=== PATIENT | male | born 1960 | race Caucasian/White ===

== ENCOUNTER 2016-12-27 13:34 | Inpatient (IN) | payer MEDICARE ==
[2016-12-27 13:42] LABS: Glucose,Whole Blood >600 mg/dL (75-99)
[2016-12-27] MEDS ORDERED: ONDANSETRON 4 MG/2 ML VIAL IVP STA (13:42)
[2016-12-27] MEDS ORDERED: SODIUM CHLORIDE 0.9% 2,000 ML IV STA (13:42)
[2016-12-27] MEDS ORDERED: INSULIN REGULAR 100 UNIT in SODIUM CHLORIDE 0.9% 100 ML IV ONE (13:45)
[2016-12-27] MEDS ORDERED: INSULIN REGULAR 100 UNIT/ML VIAL IV ONE (13:45)
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
[2016-12-27 14:22] LABS: Anisocytosis Slight; Basophils % (A) 0 %; CH 27.4; CHCM 31.4; Eosinophils % (A) 0 %; HCT 31.6 % (39.0-53.0); HDW 2.65; HGB 10.1 gm/dL (13.0-17.5); Hypochromasia Slight; Luc # (Auto) 0.29; Luc % (Auto) 1; Lymphocytes # (A) 0.9 k/uL (1.0-4.8); Lymphocytes % (A) 3 %; MCV 87.6 fL (80.0-100.0); Mean Platelet Volume 8.7; Monocytes # (A) 1.3 k/uL (0-1.0); Monocytes % (A) 5 %; Neutrophils # (A) 23.3 k/uL (1.3-7.7); Neutrophils % (A) 90 %; RBC 3.61 m/uL (4.30-5.90); RDW 16.3 % (11.5-15.5)
[2016-12-27 14:31] LABS: ALT 24 U/L (21-72); AST 14 U/L (17-59); Alkaline Phosphatase 87 U/L (38-126); Amylase <30 U/L (30-110); Anion Gap 32 mmol/L; Calcium 9.8 mg/dL (8.4-10.2); Carbon Dioxide 11 mmol/L (22-30); Chloride 85 mmol/L (98-107); Non-African American GFR(MDRD) 35 (>60 ml/min/1.73 sqM); Potassium 6.1 mmol/L (3.5-5.1); Sodium 128 mmol/L (137-145); Total Bilirubin 0.8 mg/dL (0.2-1.3); Total Protein 6.2 g/dL (6.3-8.2)
[2016-12-27 14:38] LABS: WBC 25.7 k/uL (3.8-10.6)
[2016-12-27 14:49] LABS: Blood Urea Nitrogen 106 mg/dL (9-20); Glucose 792 mg/dL (74-99)
[2016-12-27 14:52] LABS: ABG PCO2 23 mmHg (35-45); ABG PH 7.27 (7.35-7.45); ABG PO2 122 mmHg (83-108)
[2016-12-27 14:53] LABS: ABG HCO3 11 mmol/L (21-25); ABG TCO2 11 mmol/L (19-24)
[2016-12-27 14:55] LABS: Troponin I 0.031 ng/mL (0.000-0.034)
[2016-12-27 14:57] LABS: Appearance,Urine Clear (Clear); Bilirubin,Urine Negative (Negative); Glucose,Urine (UA) 4+ (Negative); Leukocyte Esterase,Urine Negative (Negative); Nitrite,Urine Negative (Negative); PH, Urine 5.5 (5.0-8.0); Protein,Urine Negative (Negative); Specific Gravity,Urine 1.011 (1.001-1.035); UA Billing (MACRO vs. MICRO) CHEM; Urobilinogen,Urine <2.0 mg/dL (<2.0)
[2016-12-27 14:58] LABS: Creatine Kinase MB 2.9 ng/mL (0.0-2.4)
[2016-12-27 15:04] LABS: Ketones,Urine 2+ (Negative)
--- NOTE | 2016-12-27 15:10 | XR ---
EXAMINATION TYPE: XR chest 2V DATE OF EXAM: 12/27/2016 COMPARISON: 11/04/2015 HISTORY: Abdominal pain TECHNIQUE: Frontal and lateral views of the chest are obtained. FINDINGS: Heart and mediastinum are normal. Lungs are clear. Costophrenic angles are clear. There ar e chest leads. There are no hilar masses. Bony thorax is intact. IMPRESSION: Normal chest. No change.
[2016-12-27 16:14] LABS: Glucose,Whole Blood 554 mg/dL (75-99)
[2016-12-27] MEDS: INSULIN REGULAR 100 UNIT in SODIUM CHLORIDE 0.9% 100 ML IV SCH ×2 (16:42→22:24)
[2016-12-27] MEDS: SODIUM CHLORIDE 0.9% 1,000 ML IV SCH ×2 (17:15→21:14)
[2016-12-27 17:20] LABS: Glucose,Whole Blood 531 mg/dL (75-99)
[2016-12-27 17:47] LABS: Glucose,Whole Blood 488 mg/dL (75-99)
[2016-12-27 18:36] LABS: Anion Gap 18 mmol/L; Blood Urea Nitrogen 102 mg/dL (9-20); Carbon Dioxide 17 mmol/L (22-30); Chloride 99 mmol/L (98-107); Glucose 487 mg/dL (74-99); Non-African American GFR(MDRD) 57 (>60 ml/min/1.73 sqM); Phosphorous 2.2 mg/dL (2.5-4.5); Potassium 4.1 mmol/L (3.5-5.1); Sodium 134 mmol/L (137-145)
[2016-12-27] MEDS: PANTOPRAZOLE 40 MG/10 ML VIAL IV SCH (18:46)
[2016-12-27] MEDS: NICOTINE 14MG/24HR PATCH TRANSDERM SCH (18:47)
[2016-12-27 20:07] LABS: Glucose,Whole Blood 384 mg/dL (75-99)
[2016-12-27 21:14] LABS: Glucose,Whole Blood 310 mg/dL (75-99)
[2016-12-27] MEDS: PREGABALIN 75 MG CAP PO SCH (21:14)
[2016-12-27] MEDS: HYDROcodone/APAP 7.5-325MG 1 EACH TAB PO PRN (21:14)
[2016-12-27 21:56] LABS: Glucose,Whole Blood 269 mg/dL (75-99)
[2016-12-27] MEDS: D5-0.45% NACL WITH KCL 20MEQ/L 1,000 ML IV SCH (22:25)
[2016-12-27 23:00] LABS: Anion Gap 10 mmol/L; Carbon Dioxide 21 mmol/L (22-30); Chloride 106 mmol/L (98-107); Glucose 173 mg/dL (74-99); Non-African American GFR(MDRD) >60 (>60 ml/min/1.73 sqM); Phosphorous 1.7 mg/dL (2.5-4.5); Potassium 3.8 mmol/L (3.5-5.1); Sodium 137 mmol/L (137-145)
[2016-12-27 23:01] LABS: Blood Urea Nitrogen 93 mg/dL (9-20)
[2016-12-28 02:59] LABS: Glucose,Whole Blood 171 mg/dL (75-99)
[2016-12-28 02:59] LABS: Glucose,Whole Blood 94 mg/dL (75-99)
[2016-12-28 02:59] LABS: Glucose,Whole Blood 90 mg/dL (75-99)
[2016-12-28 02:59] LABS: Glucose,Whole Blood 124 mg/dL (75-99)
[2016-12-28 03:05] LABS: Glucose,Whole Blood 109 mg/dL (75-99)
[2016-12-28 04:02] LABS: Glucose,Whole Blood 114 mg/dL (75-99)
[2016-12-28] MEDS: D5-0.45% NACL WITH KCL 20MEQ/L 1,000 ML IV SCH (05:05)
[2016-12-28 05:09] LABS: Glucose,Whole Blood 104 mg/dL (75-99)
[2016-12-28 06:06] LABS: Anisocytosis Slight; Basophils % (A) 0 %; CH 27.7; CHCM 33.4; Eosinophils # (A) 0.1 k/uL (0-0.7); Eosinophils % (A) 1 %; HCT 20.6 % (39.0-53.0); HDW 2.59; Luc # (Auto) 0.26; Luc % (Auto) 2; Lymphocytes # (A) 2.1 k/uL (1.0-4.8); Lymphocytes % (A) 13 %; MCHC 33.6 g/dL (31.0-37.0); MCV 83.4 fL (80.0-100.0); Mean Platelet Volume 7.5; Monocytes # (A) 1.2 k/uL (0-1.0); Monocytes % (A) 8 %; Neutrophils # (A) 12.1 k/uL (1.3-7.7); Neutrophils % (A) 77 %; RBC 2.47 m/uL (4.30-5.90); RDW 16.4 % (11.5-15.5); WBC 15.8 k/uL (3.8-10.6); WBC (Perox) 14.72
[2016-12-28 06:11] LABS: Glucose,Whole Blood 108 mg/dL (75-99)
[2016-12-28 06:11] LABS: ALT 21 U/L (21-72); AST 10 U/L (17-59); Alkaline Phosphatase 54 U/L (38-126); Anion Gap 7 mmol/L; Blood Urea Nitrogen 79 mg/dL (9-20); Calcium 8.6 mg/dL (8.4-10.2); Carbon Dioxide 20 mmol/L (22-30); Chloride 111 mmol/L (98-107); Glucose 95 mg/dL (74-99); Non-African American GFR(MDRD) >60 (>60 ml/min/1.73 sqM); Potassium 4.2 mmol/L (3.5-5.1); Sodium 138 mmol/L (137-145); Total Bilirubin 0.2 mg/dL (0.2-1.3); Total Protein 4.6 g/dL (6.3-8.2)
[2016-12-28 06:14] LABS: HGB 6.9 gm/dL (13.0-17.5)
[2016-12-28 06:42] LABS: Anisocytosis Slight; CH 27.7; CHCM 33.6; HCT 21.2 % (39.0-53.0); HDW 2.62; HGB 7.1 gm/dL (13.0-17.5); MCH 27.8 pg (25.0-35.0); MCHC 33.6 g/dL (31.0-37.0); MCV 82.6 fL (80.0-100.0); Mean Platelet Volume 8.5; RBC 2.57 m/uL (4.30-5.90); RDW 16.5 % (11.5-15.5); WBC 16.1 k/uL (3.8-10.6)
[2016-12-28 07:00] LABS: Glucose,Whole Blood 121 mg/dL (75-99)
[2016-12-28 08:00] LABS: Glucose,Whole Blood 102 mg/dL (75-99)
[2016-12-28] MEDS: INSULIN GLARGINE 100 UNIT/ML 10 ML VIAL SQ SCH (09:21)
[2016-12-28] MEDS: PANTOPRAZOLE 40 MG/10 ML VIAL IV SCH (09:25)
[2016-12-28] MEDS: NICOTINE 14MG/24HR PATCH TRANSDERM SCH (09:25)
--- NOTE | 2016-12-28 09:29 | XR ---
EXAMINATION TYPE: XR chest 1V DATE OF EXAM: 12/28/2016 COMPARISON: Prior chest x-ray 12/27/2016 HISTORY: Rule out fluid overload, diabetes ketoacidosis TECHNIQUE: Single frontal view of the chest is obtained. FINDINGS: There is no focal air space opacity, pleural effusion, or pneumothorax seen. The cardiac silhouette size is within normal limits. The osseous structures are intact. IMPRESSION: No acute process.
[2016-12-28] MEDS: PREGABALIN 75 MG CAP PO SCH ×3 (09:34→20:24)
[2016-12-28 10:35] VITALS: BMI 16.9
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
[2016-12-28 11:22] LABS: % Iron Saturation 9.5 % (20-50)
[2016-12-28 12:20] LABS: Glucose,Whole Blood 156 mg/dL (75-99)
[2016-12-28] MEDS: INSULIN LISPRO (humaLOG) 300 UNIT/3 ML VIAL SQ SCH ×3 (12:49→20:24)
[2016-12-28] MEDS: HYDROcodone/APAP 7.5-325MG 1 EACH TAB PO PRN (13:15)
[2016-12-28 15:04] LABS: Anisocytosis Slight; Basophils % (A) 0 %; CH 27.2; CHCM 34.3; Eosinophils # (A) 0.2 k/uL (0-0.7); Eosinophils % (A) 1 %; HCT 21.8 % (39.0-53.0); HDW 2.69; HGB 7.5 gm/dL (13.0-17.5); Luc # (Auto) 0.22; Luc % (Auto) 1; Lymphocytes # (A) 1.6 k/uL (1.0-4.8); Lymphocytes % (A) 9 %; MCH 27.3 pg (25.0-35.0); MCHC 34.2 g/dL (31.0-37.0); MCV 79.8 fL (80.0-100.0); Mean Platelet Volume 8.3; Microcytosis Slight; Monocytes # (A) 1.2 k/uL (0-1.0); Monocytes % (A) 7 %; Neutrophils % (A) 81 %; RBC 2.73 m/uL (4.30-5.90); RDW 16.5 % (11.5-15.5); WBC 17.3 k/uL (3.8-10.6); WBC (Perox) 18.21
[2016-12-28] MEDS: ONDANSETRON 4 MG/2 ML VIAL IVP PRN (16:16)
[2016-12-28 17:20] LABS: Glucose,Whole Blood 94 mg/dL (75-99)
[2016-12-28 20:25] LABS: Glucose,Whole Blood 155 mg/dL (75-99)
[2016-12-28 22:51] LABS: Hemoglobin A1C 9.7 % (4.2-6.1)
[2016-12-29 05:11] LABS: Anisocytosis Slight; Basophils % (A) 0 %; CH 27.7; CHCM 34.8; Eosinophils # (A) 0.2 k/uL (0-0.7); Eosinophils % (A) 2 %; HDW 2.73; Luc # (Auto) 0.16; Luc % (Auto) 2; Lymphocytes % (A) 21 %; MCH 28.3 pg (25.0-35.0); MCHC 35.3 g/dL (31.0-37.0); MCV 80.1 fL (80.0-100.0); Mean Platelet Volume 8.1; Microcytosis Slight; Monocytes # (A) 0.8 k/uL (0-1.0); Monocytes % (A) 8 %; Neutrophils # (A) 6.4 k/uL (1.3-7.7); Neutrophils % (A) 67 %; RBC 2.35 m/uL (4.30-5.90); RDW 16.8 % (11.5-15.5); WBC 9.6 k/uL (3.8-10.6); WBC (Perox) 9.46
[2016-12-29 05:18] LABS: HCT 18.8 % (39.0-53.0); HGB 6.6 gm/dL (13.0-17.5)
[2016-12-29 05:56] LABS: ALT 21 U/L (21-72); AST 12 U/L (17-59); Alkaline Phosphatase 50 U/L (38-126); Anion Gap 7 mmol/L; Blood Urea Nitrogen 42 mg/dL (9-20); Calcium 8.7 mg/dL (8.4-10.2); Carbon Dioxide 21 mmol/L (22-30); Chloride 112 mmol/L (98-107); Magnesium 1.8 mg/dL (1.6-2.3); Non-African American GFR(MDRD) >60 (>60 ml/min/1.73 sqM); Phosphorous 2.6 mg/dL (2.5-4.5); Sodium 140 mmol/L (137-145); Total Bilirubin 0.1 mg/dL (0.2-1.3); Total Protein 4.5 g/dL (6.3-8.2)
[2016-12-29 06:05] LABS: Glucose 47 mg/dL (74-99)
[2016-12-29 06:10] LABS: Glucose,Whole Blood 57 mg/dL (75-99)
[2016-12-29 06:47] LABS: Glucose,Whole Blood 91 mg/dL (75-99)
[2016-12-29] MEDS: INSULIN LISPRO (humaLOG) 300 UNIT/3 ML VIAL SQ SCH ×4 (08:15→22:56)
[2016-12-29] MEDS: NICOTINE 14MG/24HR PATCH TRANSDERM SCH (08:15)
[2016-12-29] MEDS: PANTOPRAZOLE 40 MG/10 ML VIAL IV SCH (08:16)
[2016-12-29 09:37] LABS: Glucose,Whole Blood 381 mg/dL (75-99)
--- NOTE | 2016-12-29 10:26 | P.PN ---
Subjective 12/28/09-This is a 56-year-old male patient being seen, examined and evaluated today in the intensive care unit. Patient came into the emergency room after a 3-4 history of having vomiting and diarrhea. The patient is a known diabetic and stops taking his insulin due to not eating the past 3-4 days. Subsequently the patient presented to the emergency room and was found to be in DKA. The patient's blood sugar was greater than 600 and also had positive acetones. The patient states he has had DKA in the past and he felt the symptoms coming on and therefore he came into the emergency room. On the patient's hemoglobin was 10.1 subsequently dropped to 6.9 a repeat was 7.1. There's been no signs and symptoms of bleeding. He has not had any further diarrhea or vomiting since admission. He did receive a 2 L bolus well in the emergency room. Patient states that his stools have been dark brown and watery as well as his emesis was coffee ground at home. GI has been consult it. Upon examination the patient is resting up in bed on room air denies any cough congestion or shortness of breath. Denies any dizziness or abdominal pain. She does have a urostomy on the right lower abdomen. Patient has had good urine output. Vital signs currently stable. The patient's insulin drip has been discontinued this morning. 12/29/16- upon examination the patient is resting up in bed on room air. Patient had labs drawn this morning which revealed a drop in his hemoglobin to 6.6. Patient is currently receiving 1 unit of packed red blood cells at the time of examination. Repeat labs will be drawn 2 hours post blood transfusion. Patient has not had a bowel movement since admission. No further nausea or vomiting. Urostomy to the right lower abdomen and intact no bleeding noted in the urostomy bag. Vital signs continued to be stable. Patient on longer on insulin drip. Patient states he is tolerating his diet well. GI was put on consult currently awaiting recommendations. Objective - Vital Signs Vital signs: Vital Signs Temp 98.2 F 12/29/16 07:25 Pulse 80 12/29/16 09:00 Resp 23 12/29/16 09:00 BP 166/88 12/29/16 09:00 Pulse Ox 98 12/29/16 08:00 Intake & Output 12/28/16 12/29/16 12/29/16 18:59 06:59 18:59 Intake Total 2175 600 250 Output Total 1101 1000 250 Balance 1074 -400 0 Weight 47.6 kg 48.8 kg Intake: IV 300 D5-0.45% NaCl with KCl 300 20Meq/l 1,000 ml @ 150 mls/hr IV .Q6H40M [facility] Rx# :[id number] Oral 1875 600 Blood Product 0 250 Rc As-3 Unit 0 [id number] Output: Urine 1101 1000 250 Other: Voiding Method Incontinent Incontinent Incontinent - Exam GENERAL EXAM: Alert, active, comfortable in no apparent distress. HEAD: Normocephalic. EYES: Normal reaction of pupils, equal size. NOSE: Clear with pink turbinates. THROAT: No erythema or exudates. NECK: No masses, no JVD. CHEST: No chest wall deformity. LUNGS: Equal air entry with no crackles, wheeze, rhonchi or dullness. CVS: S1 and S2 normal with no audible mumurs, regular rhythm. ABDOMEN: No hepatosplenomegaly, normal bowel sounds, no guarding or rigidity. Urostomy present EXTREMITIES: No edema noted, pedal pulses palpable. SKIN: No rashes CENTRAL NERVOUS SYSTEM: No focal deficits, tone is normal in all 4 extremities. - Labs CBC & Chem 7: 12/29/16 04:37 12/29/16 04:37 Labs: Abnormal Lab Results - Last 24 Hours (Table) 12/28/16 12/28/16 12/28/16 Range/Units 05:03 05:03 06:28 WBC (3.8-10.6) k/uL RBC (4.30-5.90) m/uL Hgb (13.0-17.5) gm/dL Hct (39.0-53.0) % MCV (80.0-100.0) fL RDW (11.5-15.5) % Neutrophils # (1.3-7.7) k/uL Monocytes # (0-1.0) k/uL Chloride (98-107) mmol/L Carbon Dioxide (22-30) mmol/L BUN (9-20) mg/dL Glucose (74-99) mg/dL POC Glucose (mg/dL) (75-99) mg/dL Hemoglobin A1c 9.7 H (4.2-6.1) % Iron 22 L (49-181) ug/dL TIBC 232 L (261-462) ug/dL % Saturation 9.5 L (20-50) % Total Bilirubin (0.2-1.3) mg/dL AST (17-59) U/L Total Protein (6.3-8.2) g/dL Albumin (3.5-5.0) g/dL Crossmatch See Detail 12/28/16 12/28/16 12/28/16 Range/Units 12:18 14:08 20:24 WBC 17.3 H (3.8-10.6) k/uL RBC 2.73 L (4.30-5.90) m/uL Hgb 7.5 L (13.0-17.5) gm/dL Hct 21.8 L (39.0-53.0) % MCV 79.8 L (80.0-100.0) fL RDW 16.5 H (11.5-15.5) % Neutrophils # 14.0 H (1.3-7.7) k/uL Monocytes # 1.2 H (0-1.0) k/uL Chloride (98-107) mmol/L Carbon Dioxide (22-30) mmol/L BUN (9-20) mg/dL Glucose (74-99) mg/dL POC Glucose (mg/dL) 156 H 155 H (75-99) mg/dL Hemoglobin A1c (4.2-6.1) % Iron (49-181) ug/dL TIBC (261-462) ug/dL % Saturation (20-50) % Total Bilirubin (0.2-1.3) mg/dL AST (17-59) U/L Total Protein (6.3-8.2) g/dL Albumin (3.5-5.0) g/dL Crossmatch 12/29/16 12/29/16 12/29/16 Range/Units 04:37 04:37 06:07 WBC (3.8-10.6) k/uL RBC 2.35 L (4.30-5.90) m/uL Hgb 6.6 L* (13.0-17.5) gm/dL Hct 18.8 L* (39.0-53.0) % MCV (80.0-100.0) fL RDW 16.8 H (11.5-15.5) % Neutrophils # (1.3-7.7) k/uL Monocytes # (0-1.0) k/uL Chloride 112 H (98-107) mmol/L Carbon Dioxide 21 L (22-30) mmol/L BUN 42 H (9-20) mg/dL Glucose 47 L* (74-99) mg/dL POC Glucose (mg/dL) 57 L (75-99) mg/dL Hemoglobin A1c (4.2-6.1) % Iron (49-181) ug/dL TIBC (261-462) ug/dL % Saturation (20-50) % Total Bilirubin 0.1 L (0.2-1.3) mg/dL AST 12 L (17-59) U/L Total Protein 4.5 L (6.3-8.2) g/dL Albumin 2.3 L (3.5-5.0) g/dL Crossmatch 12/29/16 Range/Units 09:36 WBC (3.8-10.6) k/uL RBC (4.30-5.90) m/uL Hgb (13.0-17.5) gm/dL Hct (39.0-53.0) % MCV (80.0-100.0) fL RDW (11.5-15.5) % Neutrophils # (1.3-7.7) k/uL Monocytes # (0-1.0) k/uL Chloride (98-107) mmol/L Carbon Dioxide (22-30) mmol/L BUN (9-20) mg/dL Glucose (74-99) mg/dL POC Glucose (mg/dL) 381 H (75-99) mg/dL Hemoglobin A1c (4.2-6.1) % Iron (49-181) ug/dL TIBC (261-462) ug/dL % Saturation (20-50) % Total Bilirubin (0.2-1.3) mg/dL AST (17-59) U/L Total Protein (6.3-8.2) g/dL Albumin (3.5-5.0) g/dL Crossmatch Assessment and Plan Plan: Assessment Diabetic ketoacidosis Dehydration with Diarrhea and vomiting, possible coffee-ground emesis Acute blood loss anemia Hypertension History of bladder cancer with urostomy placement in 2008 Diabetes mellitus type 2 Hyperlipidemia Plan Medications have been reviewed and will be continued as ordered. Patient is put back on Lantus and sliding scale coverage. Repeat CBC 2 hours post blood transfusion. And he need to monitor for any blood loss we'll obtain stool occult blood. Continue with pulmonary hygiene, coughing and deep breathing exercises, and supportive care. Supplemental oxygen to maintain oxygen saturations of 92% or better if needed. Continue nebulizer treatments. GI and DVT prophylaxis. GI has been consulted, appreciate any recommendations. We will continue to monitor labs/results and adjust treatment as necessary. Further recommendations pending. I performed an examination of the patient and discussed their management with the nurse practitioner. I have reviewed the nurse practitioner's note and agree with the documented findings and plan of care.
[2016-12-29 12:01] LABS: Glucose,Whole Blood 358 mg/dL (75-99)
[2016-12-29 12:07] LABS: Anisocytosis Slight; CH 28.1; CHCM 34.4; HDW 3.51; MCH 29.4 pg (25.0-35.0); MCHC 35.8 g/dL (31.0-37.0); MCV 82.1 fL (80.0-100.0); Mean Platelet Volume 8.1; Poikilocytosis Slight; RBC 2.92 m/uL (4.30-5.90); WBC 7.9 k/uL (3.8-10.6)
[2016-12-29 12:10] LABS: HGB 8.6 gm/dL (13.0-17.5)
[2016-12-29] MEDS: INSULIN GLARGINE 100 UNIT/ML 10 ML VIAL SQ SCH (12:29)
[2016-12-29] MEDS: PREGABALIN 75 MG CAP PO SCH ×3 (12:29→22:55)
--- NOTE | 2016-12-29 12:31 | P.PN ---
Subjective Principal diagnosis: his is a 56-year-old male, patient of Dr. Evans. He has a known past medical history of diabetes mellitus, hyperlipidemia, hypertension, bladder cancer diagnosed in 2008 with urostomy placement. Patient reports having vomiting and diarrhea for the last 3-4 days. He also reports some dark substance like coffee grounds in the vomit. He reports having about 5 episodes of vomiting and diarrhea a day. Unable to keep any food down. He reports not taking his insulin while he is been sick. Patient continued to feel weaker. And he reports that a neighbor found him sitting in his kitchen and called EMS. Patient was brought into the emergency room for further evaluation and treatment. He was found to have a blood sugar greater than 600 acetone positive and CO2 of 11. Diagnosed with diabetic ketoacidosis. He was admitted to the ICU and placed on the insulin protocol for diabetic ketoacidosis. Vomiting and diarrhea have resolved. However hemoglobin on admission was 10.1 dropped down to 6.9 and is currently at 7.1. Monitoring CBC closely. He's had no further vomiting and diarrhea since Wednesday. He denies any recent traveling. Denies any sick contacts. Last colonoscopy 2 years ago patient reports having polyps removed. on 12/29/2016 patient is alert and oriented in no distress tolerating diet well, off insulin drip on Lantus 20 units daily and novolog sliding scale, HGB 7.1 awaiting GI input. Objective - Vital Signs Vital signs: Vital Signs Temp 98.5 F 12/29/16 10:00 Pulse 71 12/29/16 11:00 Resp 26 H 12/29/16 11:00 BP 143/68 12/29/16 11:00 Pulse Ox 98 12/29/16 11:00 Intake & Output 12/28/16 12/29/16 12/29/16 18:59 06:59 18:59 Intake Total 2175 600 250 Output Total 1101 1000 525 Balance 1074 -400 -275 Weight 47.6 kg 48.8 kg Intake: IV 300 D5-0.45% NaCl with KCl 300 20Meq/l 1,000 ml @ 150 mls/hr IV .Q6H40M [facility] Rx# :[id number] Oral 1875 600 Blood Product 0 250 Rc As-3 Unit 0 0 [id number] Output: Urine 1101 1000 525 Other: Voiding Method Incontinent Incontinent Incontinent # Voids 0 - Exam HEENT head normocephalic and atraumatic Neck is supple no JVD no goiter no lymphadenopathy Chest is clear to auscultation no crackles no wheezing Cardiac exam reveals regular heart sounds S1 and S2 no gallops no murmurs Abdomen is soft nontender no organomegaly with normal bowel sounds Extremity exam reveals no edema no cyanosis or clubbing - Labs CBC & Chem 7: 12/29/16 11:36 12/29/16 04:37 Labs: Abnormal Lab Results - Last 24 Hours (Table) 12/28/16 12/28/16 12/28/16 Range/Units 05:03 06:28 14:08 WBC 17.3 H (3.8-10.6) k/uL RBC 2.73 L (4.30-5.90) m/uL Hgb 7.5 L (13.0-17.5) gm/dL Hct 21.8 L (39.0-53.0) % MCV 79.8 L (80.0-100.0) fL RDW 16.5 H (11.5-15.5) % Neutrophils # 14.0 H (1.3-7.7) k/uL Monocytes # 1.2 H (0-1.0) k/uL Chloride (98-107) mmol/L Carbon Dioxide (22-30) mmol/L BUN (9-20) mg/dL Glucose (74-99) mg/dL POC Glucose (mg/dL) (75-99) mg/dL Hemoglobin A1c 9.7 H (4.2-6.1) % Total Bilirubin (0.2-1.3) mg/dL AST (17-59) U/L Total Protein (6.3-8.2) g/dL Albumin (3.5-5.0) g/dL Crossmatch See Detail 12/28/16 12/29/16 12/29/16 Range/Units 20:24 04:37 04:37 WBC (3.8-10.6) k/uL RBC 2.35 L (4.30-5.90) m/uL Hgb 6.6 L* (13.0-17.5) gm/dL Hct 18.8 L* (39.0-53.0) % MCV (80.0-100.0) fL RDW 16.8 H (11.5-15.5) % Neutrophils # (1.3-7.7) k/uL Monocytes # (0-1.0) k/uL Chloride 112 H (98-107) mmol/L Carbon Dioxide 21 L (22-30) mmol/L BUN 42 H (9-20) mg/dL Glucose 47 L* (74-99) mg/dL POC Glucose (mg/dL) 155 H (75-99) mg/dL Hemoglobin A1c (4.2-6.1) % Total Bilirubin 0.1 L (0.2-1.3) mg/dL AST 12 L (17-59) U/L Total Protein 4.5 L (6.3-8.2) g/dL Albumin 2.3 L (3.5-5.0) g/dL Crossmatch 12/29/16 12/29/16 12/29/16 Range/Units 06:07 09:36 11:36 WBC (3.8-10.6) k/uL RBC 2.92 L (4.30-5.90) m/uL Hgb 8.6 L D (13.0-17.5) gm/dL Hct 24.0 L (39.0-53.0) % MCV (80.0-100.0) fL RDW 16.0 H (11.5-15.5) % Neutrophils # (1.3-7.7) k/uL Monocytes # (0-1.0) k/uL Chloride (98-107) mmol/L Carbon Dioxide (22-30) mmol/L BUN (9-20) mg/dL Glucose (74-99) mg/dL POC Glucose (mg/dL) 57 L 381 H (75-99) mg/dL Hemoglobin A1c (4.2-6.1) % Total Bilirubin (0.2-1.3) mg/dL AST (17-59) U/L Total Protein (6.3-8.2) g/dL Albumin (3.5-5.0) g/dL Crossmatch 12/29/16 Range/Units 11:59 WBC (3.8-10.6) k/uL RBC (4.30-5.90) m/uL Hgb (13.0-17.5) gm/dL Hct (39.0-53.0) % MCV (80.0-100.0) fL RDW (11.5-15.5) % Neutrophils # (1.3-7.7) k/uL Monocytes # (0-1.0) k/uL Chloride (98-107) mmol/L Carbon Dioxide (22-30) mmol/L BUN (9-20) mg/dL Glucose (74-99) mg/dL POC Glucose (mg/dL) 358 H (75-99) mg/dL Hemoglobin A1c (4.2-6.1) % Total Bilirubin (0.2-1.3) mg/dL AST (17-59) U/L Total Protein (6.3-8.2) g/dL Albumin (3.5-5.0) g/dL Crossmatch Assessment and Plan Plan: 1. Diabetic ketoacidosis with a blood sugar greater than 600 positive acetone and CO2 of 11. on presentation. Patient was placed on the diabetic ketoacidosis protocol. Blood sugars have shown improvement. Currently off of insulin drip. And started on Lantus 20 units at bedtime with sliding scale coverage. Continue to monitor. The DKA likely occurred due to patient not taking his insulin as well as being sick with vomiting and diarrhea. 2. Vomiting and diarrhea with possible coffee-ground emesis: Continue to monitor CBC closely. Last hemoglobin was 7. 1 repeat ordered this afternoon. Continue with the IV Protonix. Consult GI service for possible endoscopy. Check stool for occult blood 3. Acute blood loss anemia with coffee-ground emesis and possible GI bleed: Continue to monitor CBC. Continue Protonix. GI service consulted. Check iron studies 4. History of bladder cancer with urostomy placement in 2008 5. History of insulin-dependent diabetes mellitus 6. Essential hypertension, well controlled at this time. 7. Hyperlipidemia 8. History of iron deficiency anemia 9. Nicotine dependence: Continue nicotine patch. 10. Dehydration with elevated BUN of 93 down to 42 Improved with IV fluids. Continue to monitor creatinine normal at 0.9
[2016-12-29 17:04] VITALS: RESP 16; TEMP 98
[2016-12-29 18:00] LABS: Glucose,Whole Blood 74 mg/dL (75-99)
[2016-12-29] MEDS: HYDROcodone/APAP 7.5-325MG 1 EACH TAB PO PRN (20:32)
[2016-12-29] MEDS: ONDANSETRON 4 MG/2 ML VIAL IVP PRN (20:33)
[2016-12-29 20:34] LABS: Glucose,Whole Blood 161 mg/dL (75-99)
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
[2016-12-30 07:27] LABS: Glucose,Whole Blood 55 mg/dL (75-99)
[2016-12-30] MEDS ORDERED: PANTOPRAZOLE 40 MG TABLET PO SCH (07:30)
[2016-12-30 07:39] LABS: Anisocytosis Slight; Basophils % (A) 0 %; CH 28.3; CHCM 34.9; Eosinophils # (A) 0.3 k/uL (0-0.7); Eosinophils % (A) 4 %; HCT 24.6 % (39.0-53.0); HDW 3.56; HGB 8.6 gm/dL (13.0-17.5); Luc # (Auto) 0.23; Luc % (Auto) 3; Lymphocytes # (A) 2.4 k/uL (1.0-4.8); Lymphocytes % (A) 29 %; MCH 28.6 pg (25.0-35.0); MCHC 35.1 g/dL (31.0-37.0); MCV 81.5 fL (80.0-100.0); Mean Platelet Volume 7.5; Monocytes # (A) 0.6 k/uL (0-1.0); Monocytes % (A) 7 %; Neutrophils # (A) 4.7 k/uL (1.3-7.7); Neutrophils % (A) 57 %; Poikilocytosis Slight; RBC 3.02 m/uL (4.30-5.90); RDW 16.5 % (11.5-15.5); WBC 8.2 k/uL (3.8-10.6); WBC (Perox) 8.55
[2016-12-30 07:40] LABS: Glucose,Whole Blood 104 mg/dL (75-99)
[2016-12-30 08:23] LABS: ALT 18 U/L (21-72); AST 11 U/L (17-59); Alkaline Phosphatase 57 U/L (38-126); Anion Gap 9 mmol/L; Blood Urea Nitrogen 29 mg/dL (9-20); Carbon Dioxide 23 mmol/L (22-30); Chloride 108 mmol/L (98-107); Glucose 51 mg/dL (74-99); Magnesium 1.6 mg/dL (1.6-2.3); Non-African American GFR(MDRD) >60 (>60 ml/min/1.73 sqM); Phosphorous 2.8 mg/dL (2.5-4.5); Potassium 3.8 mmol/L (3.5-5.1); Sodium 140 mmol/L (137-145); Total Bilirubin 0.6 mg/dL (0.2-1.3); Total Protein 5.2 g/dL (6.3-8.2)
[2016-12-30] MEDS: PREGABALIN 75 MG CAP PO SCH (08:23)
[2016-12-30] MEDS: NICOTINE 14MG/24HR PATCH TRANSDERM SCH (08:23)
[2016-12-30] MEDS: INSULIN GLARGINE 100 UNIT/ML 10 ML VIAL SQ SCH (08:23)
[2016-12-30] MEDS: INSULIN LISPRO (humaLOG) 300 UNIT/3 ML VIAL SQ SCH ×2 (08:24→13:18)
[2016-12-30 08:36] VITALS: BP 176/81; PULSE 73
--- NOTE | 2016-12-30 09:09 | P.PN ---
Subjective Principal diagnosis: Nausea vomiting possible coffee-ground emesis 56-year-old male admitted with DKA nausea vomiting coffee-ground emesis possible viral gastroneuritis. Blood glucose levels improved. Symptoms improved. Tolerating diet. Anticipating discharge today. Hemoglobin 8.6 unchanged from yesterday. Denies nausea vomiting coffee-ground emesis. No melena. Objective - Vital Signs Vital signs: Vital Signs Temp 98 F 12/30/16 07:00 Pulse 73 12/30/16 07:00 Resp 16 12/30/16 07:00 BP 176/81 12/30/16 07:00 Pulse Ox 98 12/30/16 07:00 Intake & Output 12/29/16 12/30/16 12/30/16 18:59 06:59 18:59 Intake Total 250 990 Output Total 1000 800 Balance -750 190 Weight 47.627 kg Intake: Oral 990 Blood Product 250 Rc As-3 Unit 0 [id number] Output: Urine 1000 800 Other: Voiding Method Incontinent Incontinent # Voids 0 4 - Exam General appearance: The patient is alert, oriented, in no acute distress. HET: Head is normocephalic and atraumatic. Pupils are equal and reactive. Oropharynx is clear without lesions. Neck: Supple without lymphadenopathy. Trachea midline. Heart: S1 S2. Regular rate and rhythm. Lungs: No crackles or wheezes are heard. Abdomen: Soft, nontender, nondistended with bowel sounds. No peritoneal signs. No palpable organomegaly or masses. Extremities: Normal skin color and turgor. No cyanosis, rash, ulceration, clubbing, or edema. Radial and pedal pulses are 2/4 bilaterally. Neurological: No focal deficits. Strength and sensation are grossly intact. - Labs CBC & Chem 7: 12/30/16 07:18 12/30/16 07:17 Labs: Abnormal Lab Results - Last 24 Hours (Table) 12/28/16 12/29/16 12/29/16 Range/Units 06:28 09:36 11:36 RBC 2.92 L (4.30-5.90) m/uL Hgb 8.6 L D (13.0-17.5) gm/dL Hct 24.0 L (39.0-53.0) % RDW 16.0 H (11.5-15.5) % Chloride (98-107) mmol/L BUN (9-20) mg/dL Glucose (74-99) mg/dL POC Glucose (mg/dL) 381 H (75-99) mg/dL AST (17-59) U/L ALT (21-72) U/L Total Protein (6.3-8.2) g/dL Albumin (3.5-5.0) g/dL Crossmatch See Detail 12/29/16 12/29/16 12/29/16 Range/Units 11:59 17:59 20:32 RBC (4.30-5.90) m/uL Hgb (13.0-17.5) gm/dL Hct (39.0-53.0) % RDW (11.5-15.5) % Chloride (98-107) mmol/L BUN (9-20) mg/dL Glucose (74-99) mg/dL POC Glucose (mg/dL) 358 H 74 L 161 H (75-99) mg/dL AST (17-59) U/L ALT (21-72) U/L Total Protein (6.3-8.2) g/dL Albumin (3.5-5.0) g/dL Crossmatch 12/30/16 12/30/16 12/30/16 Range/Units 07:07 07:17 07:18 RBC 3.02 L (4.30-5.90) m/uL Hgb 8.6 L (13.0-17.5) gm/dL Hct 24.6 L (39.0-53.0) % RDW 16.5 H (11.5-15.5) % Chloride 108 H (98-107) mmol/L BUN 29 H (9-20) mg/dL Glucose 51 L (74-99) mg/dL POC Glucose (mg/dL) 55 L (75-99) mg/dL AST 11 L (17-59) U/L ALT 18 L (21-72) U/L Total Protein 5.2 L (6.3-8.2) g/dL Albumin 2.7 L (3.5-5.0) g/dL Crossmatch 12/30/16 Range/Units 07:38 RBC (4.30-5.90) m/uL Hgb (13.0-17.5) gm/dL Hct (39.0-53.0) % RDW (11.5-15.5) % Chloride (98-107) mmol/L BUN (9-20) mg/dL Glucose (74-99) mg/dL POC Glucose (mg/dL) 104 H (75-99) mg/dL AST (17-59) U/L ALT (21-72) U/L Total Protein (6.3-8.2) g/dL Albumin (3.5-5.0) g/dL Crossmatch Assessment and Plan (1) Coffee ground emesis Status: Acute (2) Nausea & vomiting Status: Acute (3) Diabetic ketoacidosis Status: Acute Plan: 1. Symptoms have improved. Patient is deferring EGD at this time and anticipating discharge later today. Continue with supportive measures. Consideration for outpatient EGD was discussed if GI symptoms return. Patient is agreeable with this plan of care. Discharge per medicine. Assessment and plan a care discussed with Dr. Parikh
--- NOTE | 2016-12-30 10:29 | P.PN ---
Subjective 12/28/09-This is a 56-year-old male patient being seen, examined and evaluated today in the intensive care unit. Patient came into the emergency room after a 3-4 history of having vomiting and diarrhea. The patient is a known diabetic and stops taking his insulin due to not eating the past 3-4 days. Subsequently the patient presented to the emergency room and was found to be in DKA. The patient's blood sugar was greater than 600 and also had positive acetones. The patient states he has had DKA in the past and he felt the symptoms coming on and therefore he came into the emergency room. On the patient's hemoglobin was 10.1 subsequently dropped to 6.9 a repeat was 7.1. There's been no signs and symptoms of bleeding. He has not had any further diarrhea or vomiting since admission. He did receive a 2 L bolus well in the emergency room. Patient states that his stools have been dark brown and watery as well as his emesis was coffee ground at home. GI has been consult it. Upon examination the patient is resting up in bed on room air denies any cough congestion or shortness of breath. Denies any dizziness or abdominal pain. She does have a urostomy on the right lower abdomen. Patient has had good urine output. Vital signs currently stable. The patient's insulin drip has been discontinued this morning. 12/29/16- upon examination the patient is resting up in bed on room air. Patient had labs drawn this morning which revealed a drop in his hemoglobin to 6.6. Patient is currently receiving 1 unit of packed red blood cells at the time of examination. Repeat labs will be drawn 2 hours post blood transfusion. Patient has not had a bowel movement since admission. No further nausea or vomiting. Urostomy to the right lower abdomen and intact no bleeding noted in the urostomy bag. Vital signs continued to be stable. Patient on longer on insulin drip. Patient states he is tolerating his diet well. GI was put on consult currently awaiting recommendations. 12/30/16- upon examination today the patient's resting up in bed on room air. His hemoglobin has stabilized and today it is 8.6. Patient states he is feeling significantly better. Patient's blood sugars better controlled. She denies any nausea vomiting or diarrhea. Patient requesting to go home. GI has evaluated the patient as well and agrees the patient can have an EGD in the outpatient setting. During this admission the patient had no grossly visible signs and symptoms of bleeding other than the drop in hemoglobin which has improved and resolved. Patient continues to tolerate his diet well. Objective - Vital Signs Vital signs: Vital Signs Temp 98 F 12/30/16 07:00 Pulse 73 12/30/16 07:00 Resp 16 12/30/16 07:00 BP 176/81 12/30/16 07:00 Pulse Ox 98 12/30/16 07:00 Intake & Output 12/29/16 12/30/16 12/30/16 18:59 06:59 18:59 Intake Total 250 990 Output Total 1000 800 Balance -750 190 Weight 47.627 kg Intake: Oral 990 Blood Product 250 Rc As-3 Unit 0 [id number] Output: Urine 1000 800 Other: Voiding Method Incontinent Incontinent # Voids 0 4 - Exam GENERAL EXAM: Alert, active, comfortable in no apparent distress. HEAD: Normocephalic. EYES: Normal reaction of pupils, equal size. NOSE: Clear with pink turbinates. THROAT: No erythema or exudates. NECK: No masses, no JVD. CHEST: No chest wall deformity. LUNGS: Equal air entry with no crackles, wheeze, rhonchi or dullness. CVS: S1 and S2 normal with no audible mumurs, regular rhythm. ABDOMEN: No hepatosplenomegaly, normal bowel sounds, no guarding or rigidity. Urostomy present EXTREMITIES: No edema noted, pedal pulses palpable. SKIN: No rashes CENTRAL NERVOUS SYSTEM: No focal deficits, tone is normal in all 4 extremities. - Labs CBC & Chem 7: 12/30/16 07:18 12/30/16 07:17 Labs: Abnormal Lab Results - Last 24 Hours (Table) 12/28/16 12/29/16 12/29/16 Range/Units 06:28 11:36 11:59 RBC 2.92 L (4.30-5.90) m/uL Hgb 8.6 L D (13.0-17.5) gm/dL Hct 24.0 L (39.0-53.0) % RDW 16.0 H (11.5-15.5) % [place]lor[place] (98-107) mmol/L BUN (9-20) mg/dL Glucose (74-99) mg/dL POC Glucose (mg/dL) 358 H (75-99) mg/dL AST (17-59) U/L ALT (21-72) U/L Total Protein (6.3-8.2) g/dL Albumin (3.5-5.0) g/dL Crossmatch See Detail 12/29/16 12/29/16 12/30/16 Range/Units 17:59 20:32 07:07 RBC (4.30-5.90) m/uL Hgb (13.0-17.5) gm/dL Hct (39.0-53.0) % RDW (11.5-15.5) % [place]lor[place] (98-107) mmol/L BUN (9-20) mg/dL Glucose (74-99) mg/dL POC Glucose (mg/dL) 74 L 161 H 55 L (75-99) mg/dL AST (17-59) U/L ALT (21-72) U/L Total Protein (6.3-8.2) g/dL Albumin (3.5-5.0) g/dL Crossmatch 12/30/16 12/30/16 12/30/16 Range/Units 07:17 07:18 07:38 RBC 3.02 L (4.30-5.90) m/uL Hgb 8.6 L (13.0-17.5) gm/dL Hct 24.6 L (39.0-53.0) % RDW 16.5 H (11.5-15.5) % Chloride 108 H (98-107) mmol/L BUN 29 H (9-20) mg/dL Glucose 51 L (74-99) mg/dL POC Glucose (mg/dL) 104 H (75-99) mg/dL AST 11 L (17-59) U/L ALT 18 L (21-72) U/L Total Protein 5.2 L (6.3-8.2) g/dL Albumin 2.7 L (3.5-5.0) g/dL Crossmatch Assessment and Plan Plan: Assessment Diabetic ketoacidosis Dehydration with Diarrhea and vomiting, possible coffee-ground emesis Acute blood loss anemia Hypertension History of bladder cancer with urostomy placement in 2008 Diabetes mellitus type 2 Hyperlipidemia Plan Patient could be discharged from a pulmonary/critical care standpoint. Medications have been reviewed and will be continued as ordered. Patient is put back on Lantus and sliding scale coverage. Continue with pulmonary hygiene, coughing and deep breathing exercises, and supportive care. Supplemental oxygen to maintain oxygen saturations of 92% or better if needed. Continue nebulizer treatments. GI and DVT prophylaxis. GI has been consulted, appreciate any recommendations. We will continue to monitor labs/results and adjust treatment as necessary. Further recommendations pending. I performed an examination of the patient and discussed their management with the nurse practitioner. I have reviewed the nurse practitioner's note and agree with the documented findings and plan of care.
[2016-12-30 12:30] LABS: Glucose,Whole Blood 287 mg/dL (75-99)
--- NOTE | 2016-12-30 12:49 | P.DS ---
Providers Date of admission: 12/27/16 15:48 Expected date of discharge: 12/30/16 Attending physician: Glory Potter Consults: 12/27/16 15:49 Consult Physician Urgent Consulting Provider: Jonathan Elaine Consult Reason/Comments: DKA Do you want consulting provider notified?: Yes 12/28/16 10:44 Consult Physician Routine Consulting Provider: Simran Dial Consult Reason/Comments: GI Bleed, anemia Do you want consulting provider notified?: Yes Primary care physician: Payal [facility] Hospital Course: Diagnosis on discharge: 1. Diabetic ketoacidosis with a blood sugar greater than 600 positive acetone and CO2 of 11. Patient was placed on the diabetic ketoacidosis protocol. Blood sugars have shown improvement. Currently off of insulin drip. And started on Lantus 20 units at bedtime with sliding scale coverage. Continue to monitor. The DKA likely occurred due to patient not taking his insulin as well as being sick with vomiting and diarrhea. 2. Vomiting and diarrhea with possible coffee-ground emesis: Continue to monitor CBC closely. Last hemoglobin was 7. 1 repeat ordered this afternoon. Continue with the IV Protonix. Consult GI service for possible endoscopy, patient opted not to have endoscopy during this admission. 3. Acute blood loss anemia with coffee-ground emesis and possible GI bleed: Continue to monitor CBC. Continue Protonix. GI service consulted. Check iron studies, given oral iron during this admission and at the time of discharge. 4. History of bladder cancer with urostomy placement in 2008 5. History of insulin-dependent diabetes mellitus 6. Essential hypertension 7. Hyperlipidemia 8. History of iron deficiency anemia 9. Nicotine dependence: Continue nicotine patch. 10. Dehydration with elevated BUN of 93 down to 79. Improved with IV fluids. Continue to monitor creatinine normal at 1.10 Hospital course: his is a 56-year-old male, patient of Dr. Evans. He has a known past medical history of diabetes mellitus, hyperlipidemia, hypertension, bladder cancer diagnosed in 2008 with urostomy placement. Patient reports having vomiting and diarrhea for the last 3-4 days. He also reports some dark substance like coffee grounds in the vomit. He reports having about 5 episodes of vomiting and diarrhea a day. Unable to keep any food down. He reports not taking his insulin while he is been sick. Patient continued to feel weaker. And he reports that a neighbor found him sitting in his kitchen and called EMS. Patient was brought into the emergency room for further evaluation and treatment. He was found to have a blood sugar greater than 600 acetone positive and CO2 of 11. Diagnosed with diabetic ketoacidosis. He was admitted to the ICU and placed on the insulin protocol for diabetic ketoacidosis. Vomiting and diarrhea have resolved. However hemoglobin on admission was 10.1 dropped down to 6.9 and is currently at 7.1. Monitoring CBC closely. He's had no further vomiting and diarrhea since Wednesday. He denies any recent traveling. Denies any sick contacts. Last colonoscopy 2 years ago patient reports having polyps removed. on 12/29/2016 patient is alert and oriented in no distress tolerating diet well, off insulin drip on Lantus 20 units daily and novolog sliding scale, HGB 8.6 patient opted not to have EGD during this admission he was discharged home on 05/[address] Evans within 1 week Plan - Discharge Summary New Discharge Prescriptions: New Nicotine 14Mg/24Hr Patch [Habitrol] 1 patch TRANSDERM DAILY patch Continue Ergocalciferol [Vitamin D2 (DRISDOL)] 50,000 unit PO MO Pregabalin [Lyrica] 150 mg PO TID Insulin Glargine [Lantus] 26 unit SQ HS Ferrous Sulfate [Feosol] 325 mg PO DAILY HYDROcodone/APAP 7.5-325MG [[place] 7.5-325] 1 tab PO BID PRN PRN Reason: Pain INSULIN LISPRO (humaLOG) [humaLOG (formulary)] See Protocol SQ AC-TID Pantoprazole Sodium [Protonix] 40 mg PO DAILY Discharge Medication List Ergocalciferol [Vitamin D2 (DRISDOL)] 50,000 unit PO MO 08/06/14 [History] Pregabalin [Lyrica] 150 mg PO TID 08/06/14 [History] Insulin Glargine [Lantus] 26 unit SQ HS 01/10/16 [History] Ferrous Sulfate [Feosol] 325 mg PO DAILY 12/27/16 [History] HYDROcodone/APAP 7.5-325MG [[place] 7.5-325] 1 tab PO BID PRN 12/27/16 [History] INSULIN LISPRO (humaLOG) [humaLOG (formulary)] See Protocol SQ AC-TID 12/27/16 [ History] Pantoprazole Sodium [Protonix] 40 mg PO DAILY 12/27/16 [History] Nicotine 14Mg/24Hr Patch [Habitrol] 1 patch TRANSDERM DAILY patch 12/30/16 [Rx] Follow up Appointment(s)/Referral(s): Payal Eavns MD [Primary Care Provider] - 1-2 days Jonathan Elaine MD [STAFF PHYSICIAN] - 1 Week
== END 2016-12-30 14:30 | disposition home or self-care (01) | DRG 377 ==
LOC: EC 13:34 → 6ICU 15:48 → 5ONC 12-29 16:56
PROVIDERS: ADMIT Internal Medicine; ATTEND Internal Medicine
PROC: 30233N1 Transfusion of Nonautologous Red Blood Cells into Peripheral Vein, Percutaneous Approach (ICD-10-PCS; principal; 2016-12-29)
DX: K92.2 Gastrointestinal hemorrhage, unspecified (principal); E13.10 Other specified diabetes mellitus with ketoacidosis without coma; E11.42 Type 2 diabetes mellitus with diabetic polyneuropathy; Z93.6 Other artificial openings of urinary tract status; I10 Essential (primary) hypertension; D50.9 Iron deficiency anemia, unspecified; D62 Acute posthemorrhagic anemia; E86.0 Dehydration; K21.9 Gastro-esophageal reflux disease without esophagitis; R10.31 Right lower quadrant pain; T26 Burn and corrosion confined to eye and adnexa; T38.3X6A Underdosing of insulin and oral hypoglycemic [antidiabetic] drugs, initial encounter; E78.5 Hyperlipidemia, unspecified; R32 Unspecified urinary incontinence; R53.1 Weakness; R11.2 Nausea with vomiting, unspecified; R19.7 Diarrhea, unspecified; H54.42 Blindness, left eye, normal vision right eye; F17.200 Nicotine dependence, unspecified, uncomplicated; Z80.6 Family history of leukemia; Z80.0 Family history of malignant neoplasm of digestive organs; Z79.4 Long term (current) use of insulin; Z85.51 Personal history of malignant neoplasm of bladder; Z88.8 Allergy status to other drugs, medicaments and biological substances; Z86.010 Personal history of colon polyps; Z87.01 Personal history of pneumonia (recurrent); Z87.448 Personal history of other diseases of urinary system; Z71.3 Dietary counseling and surveillance; Z79.891 Long term (current) use of opiate analgesic; Z79.899 Other long term (current) drug therapy; Z82.3 Family history of stroke; Z82.49 Family history of ischemic heart disease and other diseases of the circulatory system; Z91.14 Patient's other noncompliance with medication regimen; Z87.828 Personal history of other (healed) physical injury and trauma
CPT/HCPCS: 36415; 36600; 71010; 71020; 80051; 80053; 81003; 82009; 82150; 82550; 82553; 82565; 82728; 82805; 82947; 83036; 83540; 83550; 83690; 83735; 84100; 84484; 84520; 85025; 85027; 86850; 86900; 86901; 86920; 93005; 96361; 96374; 99285